=== PATIENT | male | born 1995 | race African-American/Black ===

== ENCOUNTER 2018-02-14 16:17 | Observation (INO) ==
[2018-02-14] MEDS ORDERED: Polyethylene Glycol 3350 255 GM Bottle PO PRN (19:34)
[2018-02-14] MEDS ORDERED: Baclofen 10 MG Tablet PO PRN (19:34)
--- NOTE | 2018-02-14 21:14 | P.CONIM ---
History of Present Illness Service: [facility] Consult date: 02/15/18 Requesting Physician: Nain Aquino Reason for Consult: Patient requires placement Primary Care Provider: Nazario Kim Chief Complaint: Patient requires placement History of Present Illness: Mr. Gleason is a 22 y/o male with left hemiparesis following hydrocephalus with shunt placement in March 2017 who's primary auto care center manager at a alf was hospitalized and no longer able to provide residential care for him. [facility] is involved and he is here for placement. He has no complaints, no dietary restrictions but is wheelchair bound. [facility] - History History Provided By: Patient, Certified Endoscopy Technician / EMT - Medical History Medical History: Medical History (Last Reviewed 02/14/18 @ 07:36 by Nain Aquino) Seizure - Surgical History Surgical History: Surgical History (Last Reviewed 02/14/18 @ 07:37 by Nain Aquino) History of brain shunt Status post brain surgery - Tobacco History Second Hand Smoke Exposure: No Smoking Status: Unknown if ever smoked Tobacco Type: Cigarettes - Alcohol History How Often Do You Have a Drink Containing Alcohol: Never - Substance Use History Substance History: No History of Abuse Medications and Allergies Active Medications: Active Medications Amantadine HCl (Symmetrel) 100 mg PO BID FIOR Baclofen (Lioresal) 10 mg PO BID PRN PRN Reason: MUSCLE SPASM Buspirone HCl (Buspar) 10 mg PO BID FIOR Mirtazapine (Remeron) 15 mg PO HS FIOR Polyethylene Glycol (Miralax) 17 gm PO DAILY PRN PRN Reason: Constipation Venlafaxine HCl (Effexor Xr) 75 mg PO DAILY FIOR Allergies Allergy/AdvReac Type Severity Reaction Status Date / Time No Known Allergies Allergy Verified 02/14/18 07:22 Home Medications Medication Instructions Recorded Confirmed Type amantadine HCl 100 mg PO BID 02/14/18 02/14/18 History baclofen 10 mg PO BID PRN 02/14/18 02/14/18 History buspirone 10 mg PO BID 02/14/18 02/14/18 History mirtazapine 15 mg PO DAILY 02/14/18 02/14/18 History olanzapine 7.5 mg PO DIRECTED 02/14/18 02/14/18 History polyethylene glycol 3350 17 g PO DAILY PRN 02/14/18 02/14/18 History venlafaxine 75 mg PO DAILY 02/14/18 02/14/18 History Exam Vital signs: Vital Signs 02/14/18 19:08 Temperature 97.7 F Pulse Rate 74 Respiratory Rate 20 Blood Pressure 137/77 Pulse Oximetry 95 Intake & Output 02/14/18 02/14/18 02/15/18 06:59 18:59 06:59 Intake Total 480 / 480 Balance 480 / 480 Intake: Oral 480 / 480 - Routine Respiratory Exam Present: CTA bilaterally - Routine Cardiovascular Exam Present: RRR, S1, S2. Absent: murmur, gallop, rubs - Routine Abdominal Exam Present: soft, normoactive bowel sounds. Absent: tenderness Assessment and Plan - Plan Mr. Gleason is a 22 y/o male with left hemiparesis following hydrocephalus with shunt placement in March 2017 who's primary auto care center manager at a alf was hospitalized and no longer able to provide residential care for him. [facility] is involved and he is here for placement. He has no complaints, no dietary restrictions but is wheelchair bound. Placement needed - case management consulted - restarted home medications and regular diet Discussed Condition With: RN and Dr. Whitaker Discharge Planning: As soon as placement can be arranged
[2018-02-14] MEDS: Amantadine 100 MG Capsule PO SCH (22:26)
[2018-02-14] MEDS: Mirtazapine 15 MG Tablet PO SCH (22:26)
[2018-02-15] MEDS ORDERED: VENLAFAXINE 75 MG PO SCH (09:00)
[2018-02-15] MEDS: Amantadine 100 MG Capsule PO SCH ×2 (11:24→21:08)
[2018-02-15] MEDS: Venlafaxine XR 75 MG Capsule PO SCH (11:24)
[2018-02-15] MEDS: Mirtazapine 15 MG Tablet PO SCH (21:08)
[2018-02-16] MEDS: Venlafaxine XR 75 MG Capsule PO SCH (10:35)
[2018-02-16] MEDS: Amantadine 100 MG Capsule PO SCH ×2 (10:35→23:01)
[2018-02-16] MEDS: Mirtazapine 15 MG Tablet PO SCH (23:01)
[2018-02-17] MEDS: Amantadine 100 MG Capsule PO SCH ×2 (10:45→20:27)
[2018-02-17] MEDS: Venlafaxine XR 75 MG Capsule PO SCH (10:45)
[2018-02-17] MEDS: Mirtazapine 15 MG Tablet PO SCH (20:27)
[2018-02-18] MEDS: Venlafaxine XR 75 MG Capsule PO SCH (08:56)
[2018-02-18] MEDS: Amantadine 100 MG Capsule PO SCH ×2 (08:56→21:40)
[2018-02-18] MEDS: Mirtazapine 15 MG Tablet PO SCH (21:40)
[2018-02-19] MEDS: Venlafaxine XR 75 MG Capsule PO SCH (09:48)
[2018-02-19] MEDS: Amantadine 100 MG Capsule PO SCH ×2 (09:48→21:57)
[2018-02-19] MEDS: Mirtazapine 15 MG Tablet PO SCH (21:57)
[2018-02-20] MEDS: Venlafaxine XR 75 MG Capsule PO SCH (08:46)
[2018-02-20] MEDS: Amantadine 100 MG Capsule PO SCH (08:47)
--- NOTE | 2018-03-15 23:07 | P.DS ---
Date of admission: 02/14/18 16:31 Primary care physician: Nazario Kim Anticipated date of discharge: 02/20/18 Brief History from admission: Mr. Gleason is a 22 y/o male with left hemiparesis following hydrocephalus with shunt placement in March 2017 who's primary caretaker resort at a nursing home was hospitalized and no longer able to provide residential care for him. [facility] is involved and he is here for placement. He has no complaints, no dietary restrictions but is wheelchair bound. DS: Summary Hospital Course: Mr. Gleason is a 22 y/o male with left hemiparesis following hydrocephalus with shunt placement in March 2017 who's primary caretaker resort at a nursing home was hospitalized and no longer able to provide residential care for him. [facility] is involved and he is here for placement. He has no complaints, no dietary restrictions but is wheelchair bound. patient was monitored and remained stable throughout his stay at [facility]. Placement needed - case management consulted - restarted home medications and regular diet - Time Spent with Patient Total time spent providing and/or coordinating discharge services: Less than 30 minutes - Quality: VTE Deep Vein Thrombosis/Pulmonary Embolism Present on Admission: No Exam Narrative: Appears comfortable. Results Procedures completed during hospitalization: no procedures. Discharge Plan - Discharge Disposition Patient Disposition: Discharge to SNF - Discharge Condition Condition: Good - Discharge Order Discharge Orders: Discharge Order (Routine); Ordered 02/20/18 Ordered By: Haile Novak - Discharge Details Anticipated Discharge Date: 02/20/18 - Physicians Team Primary Care Provider: Nazario Kim Attending Provider: Haile Novak Other Providers: Box,Insurance
== END 2018-02-20 18:40 ==
LOC: NEPF 16:30 → NEDA 16:30 → NEPFCDU 16:30 → HSDC 17:41 → NEPFCDU 17:44
PROVIDERS: ADMIT Internal Medicine; ATTEND Internal Medicine